=== PATIENT | female | born 2000 | race Caucasian/White ===

== ENCOUNTER 2023-06-30 09:40 | Emergency (ER) | payer OTHER, SELFPAY ==
--- NOTE | 2023-06-30 10:00 | ED.URI ---
HPI - URI/Sore Throat General Chief Complaint: Upper Respiratory Infection Stated Complaint: throat hurts Source: patient and RN notes reviewed History of Present Illness HPI Narrative: 23-year-old female presents to urgent care with complaints sore throat, congestion, chills, and left-sided neck pain. Patient states this all started last night. Patient denies any fevers chest pain, shortness of breath, cough vomiting, diarrhea or dysuria. Patient did take an [id number] congestion pill prior to arrival. Related Data Home Medications Medication Instructions Recorded Confirmed montelukast 10 mg tablet 10 mg PO DAILY 06/30/23 06/30/23 Allergies Allergy/AdvReac Type Severity Reaction Status Date / Time No Known Allergies Allergy Verified 06/30/23 10:04 Review of Systems Review of Systems: Pertinent positives and pertinent negatives per HPI. PMFSH Comments At the time of my signature, I reviewed and agree with the nursing past medical, surgical, social, and family history. There is no relevant family history pertinent to the patient complaint. Exam Narrative: GENERAL: This is a well-nourished, well-developed patient, in no apparent distress. HEAD: normocephalic, atraumatic. EYES: Sclera clear/white. Vision is grossly intact. EARS: External ears normal, auditory canals clear and without drainage, TMs normal without perforation. Hearing grossly intact. NOSE: External nose normal with no obvious nasal discharge, nares without redness, no rhinorrhea. THROAT: Mucous membranes moist, posterior pharynx erythemic NECK: Neck supple, non-tender without lymphadenopathy, masses or thyromegaly. CARDIOVASCULAR: Regular rate RESPIRATORY: No respiratory distress SKIN: warm, intact with no suspicious lesions or rash, good texture and turgor. NEURO: awake, alert, and oriented to person, place and time. There were no obvious focal neurologic abnormalities. Course Course Level of Care: Express Care Visit Vital Signs Vital signs: Vital Signs Temperature 98.2 F 06/30/23 10:06 Pulse Rate 71 06/30/23 10:06 Respiratory Rate 18 06/30/23 10:06 Blood Pressure 115/66 06/30/23 10:06 Pulse Oximetry 98 06/30/23 10:06 Temperature 98.2 F 06/30/23 10:06 Pulse Rate 71 06/30/23 10:06 Respiratory Rate 18 08/20/23 10:06 Blood Pressure 115/66 08/20/23 10:06 Pulse Oximetry 98 06/30/23 10:06 Reviewed MDM - URI/Sore Throat MDM Narrative Medical decision making narrative: Rapid strep is negative in the office; however we will send to the lab for confirmation; there is a small percentage chance that it can come back positive; if it is, we will call you in 2-3days; and your prescription will be call in to your pharmacy. However, there is NO indication for antibiotic at this time. -Increase your fluids and Vitamin C. -Oral rinses such as: Salt water gargles and/or may use topical anesthetic (eg. Chloraseptic spray) or lozenges to relieve dryness or throat pain. -Take tylenol and ibuprofen as needed for pain and fever as directed. -Frequent hand washing or hand treatment counselor is one of the best ways to prevent spread of infection. -Follow up with primary care provider in 2-3 days if condition is not improving or seek ER visit if your child starts breathing fast/has trouble breathing, is not drinking enough fluids, muffle voice, difficulty opening the mouth or will not wake up or will not interact with you. Viral illness may last between 7-21 days; antibiotics do not cure viral illness and are NOT recommended at this time. Also, recommend symptomatic treatment includes: rest, fluids, and increase humidity of the air at home. Recommend Acetaminophen as directed on the bottle to reduce fever, pain, headache. Please schedule a follow-up visit with your personal physician for further evaluation and treatment within 3-5days. If your symptoms persist, change or worsen significantly before you can contact your per
[2023-06-30 10:06] VITALS: BP 115/66; PULSE 71; RESP 18; TEMP 36.8; O2SAT 98
== END 2023-06-30 10:38 | disposition home or self-care (01) ==
PROVIDERS: Emergency Provider Nurse Practitioner Family
DX: B34.9 Viral infection, unspecified (principal); J02.9 Acute pharyngitis, unspecified
CPT/HCPCS: 87081; 87880; 99213; G0463